=== PATIENT | female | born 1980 | race American Indian/Alaskan Native ===

== ENCOUNTER 2018-08-25 17:24 | Emergency (ER) | payer OTHER ==
--- NOTE | 2018-08-25 17:43 | Event Note ---
ED Screening Note Date of service: 08/25/18 Time: 17:39 ED Screening Note: 38 y/o female that is 7 weeks preg comes in for vag spotting and abd cramping today. This initial assessment/diagnostic orders/clinical plan/treatment(s) is/are subject to change based on patients health status, clinical progression and re- assessment by fellow clinical providers in the ED. Further treatment and workup at subsequent clinical providers discretion. Patient/guardian urged not to elope from the ED as their condition may be serious if not clinically assessed and managed. Initial orders include:
[2018-08-25 18:06] LABS: Basophils % (Auto) 0.4 % (0.0-1.8); Eosinophils # (Auto) 0.2 K/mm3 (0.0-0.4); Hemoglobin 11.7 gm/dl (10.1-14.3); Lymphocytes % (Auto) 38.7 % (13.4-35.0); Mean Corpuscular HGB Conc 34 % (30-34); Mean Corpuscular Volume 90 fl (79-97); Monocytes # (Auto) 0.6 K/mm3 (0.0-0.8); Monocytes % (Auto) 7.7 % (0.0-7.3); Platelet Count 371 K/mm3 (140-440); Red Blood Count 3.76 M/mm3 (3.65-5.03); Red Cell Distribution Width 13.3 % (13.2-15.2)
[2018-08-25 18:18] LABS: BUN/Creatinine Ratio 19; Blood Urea Nitrogen 17 mg/dL (7-17); Calcium 9.2 mg/dL (8.4-10.2); Hemolysis Index 8
[2018-08-25 18:27] LABS: Bilirubin,Urine NEG (Negative); Blood,Urine LG (Negative); Color,Urine Yellow (Yellow); Mucus,Urine FEW /HPF; Protein,Urine <15 mg/dL mg/dL (Negative); Urobilinogen,Urine < 2.0 mg/dL (<2.0)
--- NOTE | 2018-08-25 21:49 | Emergency Department Report ---
ED HPI - General Chief complaint: Abdominal Pain Stated complaint: VAG BLEED 7WKS PREG Time Seen by Provider: 08/25/18 19:09 Source: patient Mode of arrival: Ambulatory Limitations: No Limitations - History of Present Illness Initial comments: Patient is a 38-year-old female who presents with complaints of vaginal spotting that began today. She states she notices blood when she wipes. She is currently 7 weeks . Her [employer]IATION SURVIVAL TECHNICIAN is [facility]. She has not had her first ultrasound. She has associated lower abdominal cramping. She denies any urinary symptoms, vaginal discharge, fever or vomiting/diarrhea. She is taking a daily vitamin. Past medical history of asthma. /P:3/A:2 - Related Data Previous Rx's Medication Instructions Recorded Last Taken Type cephALEXin [Keflex] 500 mg PO BID 7 Days #14 cap 08/25/18 Unknown Rx Allergies Allergy/AdvReac Type Severity Reaction Status Date / Time No Known Allergies Allergy Verified 08/25/18 17:38 ED Review of Systems ROS: Stated complaint: VAG BLEED 7WKS PREG Other details as noted in HPI Comment: All other systems reviewed and negative ED Past Medical Hx - Past Medical History Previous Medical History?: No - Surgical History Past Surgical History?: No - Social History Smoking Status: Current Every Day Smoker Substance Use Type: None - Medications Home Medications: Home Medications Medication Instructions Recorded Confirmed Last Taken Type cephALEXin [Keflex] 500 mg PO BID 7 Days #14 cap 08/25/18 Unknown Rx ED Physical Exam - General Limitations: No Limitations General appearance: alert, in no apparent distress - Head Head exam: Present: atraumatic, normocephalic - Eye Eye exam: Present: normal appearance, PERRL - ENT ENT exam: Present: mucous membranes moist - Respiratory Respiratory exam: Present: normal lung sounds bilaterally. Absent: respiratory distress, wheezes, rales, rhonchi, stridor, chest wall tenderness, accessory muscle use, decreased breath sounds, prolonged expiratory - Cardiovascular Cardiovascular Exam: Present: regular rate, normal rhythm, normal heart sounds. Absent: systolic murmur, diastolic murmur, rubs, gallop - GI/Abdominal GI/Abdominal exam: Present: soft, normal bowel sounds. Absent: distended, tenderness, guarding, rebound, rigid - Back Exam Back exam: Absent: CVA tenderness (R), CVA tenderness (L) - Neurological Exam Neurological exam: Present: alert, oriented X3 - Psychiatric Psychiatric exam: Present: normal affect, normal mood - Skin Skin exam: Present: warm, dry, intact ED Course Vital Signs 08/25/18 08/25/18 17:29 22:39 Temperature 98.5 F Pulse Rate 97 H 92 H Respiratory 16 18 Rate Blood Pressure 120/76 Blood Pressure 103/78 [Right] O2 Sat by Pulse 99 100 Oximetry ED Medical Decision Making - Lab Data Result diagrams: 08/25/18 17:52 08/25/18 17:52 Lab Results 08/25/18 08/25/18 08/25/18 Range/Units 17:52 17:52 17:52 WBC 7.8 (4.5-11.0) K/mm3 RBC 3.76 (3.65-5.03) M/mm3 Hgb 11.7 (10.1-14.3) gm/dl Hct 34.0 (30.3-42.9) % MCV 90 (79-97) fl MCH 31 (28-32) pg MCHC 34 (30-34) % RDW 13.3 (13.2-15.2) % Plt Count 371 (140-440) K/mm3 Lymph % (Auto) 38.7 H (13.4-35.0) % [place] % (Auto) 7.7 H (0.0-7.3) % Eos % (Auto) 3.0 (0.0-4.3) % Baso % (Auto) 0.4 (0.0-1.8) % Lymph # 3.0 (1.2-5.4) K/mm3 [place] # 0.6 (0.0-0.8) K/mm3 Eos # 0.2 (0.0-0.4) K/mm3 Baso # 0.0 (0.0-0.1) K/mm3 Seg Neutrophils % 50.2 (40.0-70.0) % Seg Neutrophils # 3.9 (1.8-7.7) K/mm3 Sodium 135 L (137-145) mmol/L Potassium 4.1 (3.6-5.0) mmol/L Chloride 100.7 (98-107) mmol/L Carbon Dioxide 23 (22-30) mmol/L Anion Gap 15 mmol/L BUN 17 (7-17) mg/dL Creatinine 0.9 (0.7-1.2) mg/dL Estimated GFR > 60 ml/min BUN/Creatinine Ratio 19 % Glucose 99 (65-100) mg/dL Calcium 9.2 (8.4-10.2) mg/dL HCG, Quant (0-4) mIU/mL Urine Color Yellow (Yellow) Urine Turbidity Slightly-cloudy (Clear) Urine pH 5.0 (5.0-7.0) Ur Specific [place] 1.025 (1.003-1.030) Urine Protein <15 mg/dl (Negative) mg/dL Urine Glucose (UA) Neg (Negative) mg/dL Urine Ketones Neg (Negative) mg/dL Urine Blood Lg (Negative) Urine Nitrite Neg (Negative) Urine Bilirubin Neg (Negative) Urine Urobilinogen < 2.0 (<2.0) mg/dL Ur Leukocyte Esterase Tr (Negative) Urine WBC (Auto) 11.0 H (0.0-6.0) /HPF Urine RBC (Auto) 151.0 (0.0-6.0) /HPF U Epithel Cells (Auto) 5.0 (0-13.0) /HPF Urine Mucus Few /HPF Blood Type 08/25/18 08/25/18 Range/Units 17:52 17:52 WBC (4.5-11.0) K/mm3 RBC (3.65-5.03) M/mm3 Hgb (10.1-14.3) gm/dl Hct (30.3-42.9) % MCV (79-97) fl MCH (28-32) pg MCHC (30-34) % RDW (13.2-15.2) % Plt Count (140-440) K/mm3 Lymph % (Auto) (13.4-35.0) % [place] % (Auto) (0.0-7.3) % Eos % (Auto) (0.0-4.3) % Baso % (Auto) (0.0-1.8) % Lymph # (1.2-5.4) K/mm3 [place] # (0.0-0.8) K/mm3 Eos # (0.0-0.4) K/mm3 Baso # (0.0-0.1) K/mm3 Seg Neutrophils % (40.0-70.0) % Seg Neutrophils # (1.8-7.7) K/mm3 Sodium (137-145) mmol/L Potassium (3.6-5.0) mmol/L Chloride (98-107) mmol/L Carbon Dioxide (22-30) mmol/L Anion Gap mmol/L BUN (7-17) mg/dL Creatinine (0.7-1.2) mg/dL Estimated GFR ml/min BUN/Creatinine Ratio % Glucose (65-100) mg/dL Calcium (8.4-10.2) mg/dL HCG, Quant 65227 H (0-4) mIU/mL Urine Color (Yellow) Urine Turbidity (Clear) Urine pH (5.0-7.0) Ur Specific [place] (1.003-1.030) Urine Protein (Negative) mg/dL Urine Glucose (UA) (Negative) mg/dL Urine Ketones (Negative) mg/dL Urine Blood (Negative) Urine Nitrite (Negative) Urine Bilirubin (Negative) Urine Urobilinogen (<2.0) mg/dL Ur Leukocyte Esterase (Negative) Urine WBC (Auto) (0.0-6.0) /HPF Urine RBC (Auto) (0.0-6.0) /HPF U Epithel Cells (Auto) (0-13.0) /HPF Urine Mucus /HPF Blood Type O POSITIVE - Radiology Data Radiology results: report reviewed PROCEDURE: Transvaginal obstetrical ultrasound. TECHNIQUE: Real-time transvaginal sonography of the uterus, placenta, amniotic fluid, adnexa, and fetus was performed with image documentation. Measurements were obtained to determine age/size. M-mode Doppler was used to document heartbeat. HISTORY: Pelvic pain, vaginal bleeding, . COMPARISONS: None. FINDINGS: The uterus is retroflexed. The myometrium appears normal. There is a flattened gestational sac present. There is a yolk sac present and the appearance of a second smaller yolk sac. There may be a pole present that measures approximately 4.2 mm. This would indicate a menstrual age of 6 weeks 1 day. There is no detectable cardiac activity. There is echogenic debris within the gestational sac. The findings suggest intrauterine demise. Correlation with a quantitative beta hCG value and possible follow-up imaging is suggested. Both ovaries appear normal in size. There are small bilateral complex cysts within the ovaries. There is no free fluid in the cul-de-sac. IMPRESSION: Early intrauterine with probable demise. This document is electronically signed by Lena Bowman MD., August 25 2018 10:33:38 PM ET Transcribed By: SCOTTY Dictated By: LENA BOWMAN MD Electronically Authenticated By: LENA BOWMAN MD Signed Date/Time: 08/25/18 1112 - Medical Decision Making Patient is a 38-year-old female who presents with complaints of vaginal spotting that began today. She states she notices blood when she wipes. She is currently 7 weeks . Her [employer] SUR[employer] TECHNICIAN is [facility]. She has not had her first ultrasound. She has associated lower abdominal cramping. She denies any urinary symptoms, vaginal discharge, fever or vomiting/diarrhea. She is taking a daily vitamin. Past medical history of asthma. /P:3/A:2. VSS. no abd tenderness on exam. labs WNL. [place] [address]. pt is Rh (+). US shows Early intrauterine with probable demise. discussed US results with pt. advised to please follow up with her [employer] SURVIVAL TECHNICIAN in the next 24 hours. advised she would need a repeat hcg quant. pt given keflex for UTI. advised to take medication as prescribed. discussed to return to the emergency room for any new or worsening symptoms. - Differential Diagnosis early IUP, spontenous , threatened miscarriage Critical care attestation.: If time is entered above; I have spent that time in minutes in the direct care of this critically ill patient, excluding procedure time. ED Disposition Clinical Impression: Threatened miscarriage UTI (urinary tract infection) Qualifiers: Urinary tract infection type: acute cystitis Hematuria presence: with hematuria Qualified Code(s): N30.01 - Acute cystitis with hematuria Disposition: - TO HOME OR SELFCARE Is pt being admited?: No Does the pt Need Aspirin: No Condition: Stable Instructions: Threatened Miscarriage (ED), Urinary Tract Infection in Women (ED) Additional Instructions: Please call your AVIATION SURVIVAL TECHNICIAN tomorrow (08/26/18). you will need to have a repeat hCG Quant. Return to the emergency room for any new or worsening symptoms. please take medication as prescribed. drink plenty of water. Prescriptions: cephALEXin [Keflex] 500 mg PO BID 7 Days #14 cap Referrals: RUTHIE IBRAHIM MD [Primary Care Provider] - 2-3 Days [facility] [Provider Group] - 24 Hours Forms: Work/School Release Form(ED) Time of Disposition: 22:44 Print Language: MONTSERRATIAN
--- NOTE | 2018-08-25 22:30 | Ultrasound Report ---
PROCEDURE: Limited transabdominal obstetrical ultrasound. TECHNIQUE: Real-time transabdominal sonography of the uterus, placenta, amniotic fluid, adnexa, and fetus was performed with image documentation. Measurements were obtained to determine age/size. M-mode Doppler was used to document heartbeat. ADDITIONAL GESTATION: None. HISTORY: Pelvic pain, vaginal bleeding, . COMPARISONS: None. FINDINGS: Image quality is quite limited because the patient's bladder was not distended. The uterus measures a pproximately 10.3 cm x 6.7 cm x 7.2 cm. There may be a gestational sac present, but this is not optim ally demonstrated. Neither ovary is identified. There is no fluid in the cul-de-sac. A transvaginal s tudy should be more useful. IMPRESSION: Very limited transabdominal study. Possible intrauterine gestational sac. This document is electronically signed by Joon Ferguson MD., August 25 2018 10:27:54 PM ET
--- NOTE | 2018-08-25 22:35 | Ultrasound Report ---
PROCEDURE: Transvaginal obstetrical ultrasound. TECHNIQUE: Real-time transvaginal sonography of the uterus, placenta, amniotic fluid, adnexa, and fe tus was performed with image documentation. Measurements were obtained to determine age/size. M -mode Doppler was used to document heartbeat. HISTORY: Pelvic pain, vaginal bleeding, . COMPARISONS: None. FINDINGS: The uterus is retroflexed. The myometrium appears normal. There is a flattened gestational sac presen t. There is a yolk sac present and the appearance of a second smaller yolk sac. There may be a pole present that measures approximately 4.2 mm. This would indicate a menstrual age of 6 weeks 1 day . There is no detectable cardiac activity. There is echogenic debris within the gestational sac. The findings suggest intrauterine demise. Correlation with a quantitative beta hCG value and possib le follow-up imaging is suggested. Both ovaries appear normal in size. There are small bilateral comp melly cysts within the ovaries. There is no free fluid in the cul-de-sac. IMPRESSION: Early intrauterine with probable demise. This document is electronically signed by Joon Ferguson MD., August 25 2018 10:33:38 PM ET
[2018-08-25 22:40] VITALS: BP 103/78
== END 2018-08-25 22:57 | disposition home or self-care (01) ==
LOC: ED 17:24
DX: O20.0 Threatened abortion (principal); O23.41 Unspecified infection of urinary tract in pregnancy, first trimester; O99.331 Smoking (tobacco) complicating pregnancy, first trimester; F17.200 Nicotine dependence, unspecified, uncomplicated; Z3A.01 Less than 8 weeks gestation of pregnancy
CPT/HCPCS: 36415; 76801; 76817; 80048; 81001; 84702; 85025; 86900; 86901; 87086

== ENCOUNTER 2018-11-06 10:11 | Day surgery (SDC) | payer OTHER ==
[2018-11-06] MEDS ORDERED: LACTATED RINGERS 1,000 ML IV SCH (10:33)
[2018-11-06] MEDS ORDERED: DILAUDID IV PRN (11:11)
--- NOTE | 2018-11-06 11:12 | Anesthesia Consultation ---
Anesthesia Consult and Med Hx Date of service: 11/06/18 - Airway Anesthetic Teeth Evaluation: Good ROM Head & Neck: Adequate Mental/Hyoid Distance: Adequate Mallampati Class: Class I Intubation Access Assessment: Good - Pulmonary Exam CTA: Yes - Cardiac Exam Cardiac Exam: RRR - Pre-Operative Health Status ASA Pre-Surgery Classification: ASA2 Proposed Anesthetic Plan: General - Pulmonary Hx Smoking: Yes (03/01 PPD) Hx Asthma: Yes (Last albuterol 2 years ago) Hx Respiratory Symptoms: No - Cardiovascular System Hx Hypertension: No Hx Heart Attack/AMI: No - Central Nervous System CVA: No - Gastrointestinal Hx Gastroesophageal Reflux Disease: No - Endocrine Hx Renal Disease: No Hx Liver Disease: No Hx Insulin Dependent Diabetes: No Hx Non-Insulin Dependent Diabetes: No Hx Thyroid Disease: No - Other Systems Hx Alcohol Use: Yes (Occas) Hx Substance Use: Yes (THC) Hx Obesity: No
--- NOTE | 2018-11-06 11:12 | Anesthesia Day of Surgery ---
Anesthesia Day of Surgery - Day of Surgery Patient Examined: Yes Patient H&P Reviewed: Yes Patient is NPO: Yes
[2018-11-06] MEDS ORDERED: DIPRIVAN 10 MG/ML IV ONE (11:53)
[2018-11-06] MEDS ORDERED: SUBLIMAZE ONE (11:53)
[2018-11-06] MEDS ORDERED: XYLOCAINE MPF 2% ONE (11:57)
[2018-11-06] MEDS ORDERED: TRANSDERM-SCOP TD NR (12:00)
[2018-11-06] MEDS ORDERED: VERSED IV NR (12:00)
[2018-11-06] MEDS ORDERED: METHERGINE IM ONE ×2 (12:24→12:25)
[2018-11-06] MEDS ORDERED: SILVER NITRATE TP ONE (12:36)
[2018-11-06] MEDS ORDERED: NACL 0.9% IR ONE (12:38)
[2018-11-06] MEDS ORDERED: ZOFRAN ONE (12:41)
[2018-11-06 13:22] VITALS: BP 133/90
--- NOTE | 2018-11-06 14:09 | Post Anesthesia Evaluation ---
- Post Anesthesia Evaluation Patient Participated: Yes Airway Patent: Yes Stable Respiratory Function: Yes Nausea/Vomiting: No Temp > 96.8F: Yes Pain Manageable: Yes Adequeate Hydration: Yes Anesthesia Complications: No
--- NOTE | 2018-11-06 14:16 | Operative Report ---
Operative Report Operative Report: Preoperative diagnosis: 13 weeks gestation, missed . Postoperative diagnosis: same as preoperative diagnosis. Procedure: Suction D&C Surgeon: Dr. Tello Quality Control Inspector: none Anesthesia: General. EBL: 100 cc IVF: RL 1 liter Complications: none Procedure details: The risks, benefits, and alternatives of the procedure were discussed in detail with the patient which included but not limited to infection, hemorrhage requiring a, and uterine perforation. The patient expressed understanding, her questions answered, and she gave informed consent. The patient was taken to the operating room with an IVF infusing Ringer's lactate. In the operating room, she was placed in the dorsal supine position and given general anesthesia. Then, she was placed on the stirrups in a dorsal lithotomy position. The perineum vagina and cervix were washed and she was prepared and draped in the usual sterile fashion. Examination under anesthesia revealed normal external genitalia and vagina. The cervix was closed, long, posterior, no bleeding. The uterus was enlarged to 9-wk size, retroverted, mobile. The adnexae were nonpalpable. A weighted speculum was placed on the posterior vaginal wall. The anterior lip of the cervix was grasped with a single-tooth tenaculum. The cervical os was dilated, an 8-mm suction curette was connected to the suction device and introduced into the uterine cavity. It was rotated and moderate amount of tissues was suctioned. A gentle curettage was performed until a gritty texture was noticed. The suction device was re- introduced into the uterine cavity and was rotated to remove the remaining products of conception. The instruments were then removed from the uterine cavity. The count of laps, needles, sponges, and instrument were correct 2. The patient tolerated the procedure well. She was awakened from the anesthesia and taken to the recovery room in a stable condition.
== END 2018-11-06 10:12 | disposition home or self-care (01) ==
LOC: OR 10:11
PROVIDERS: ATTEND Obstetrics & Gynecology
DX: O02.1 Missed abortion (principal); G43.909 Migraine, unspecified, not intractable, without status migrainosus; J45.909 Unspecified asthma, uncomplicated; F17.210 Nicotine dependence, cigarettes, uncomplicated; Z79.899 Other long term (current) drug therapy; Z3A.13 13 weeks gestation of pregnancy; Z98.891 History of uterine scar from previous surgery; Z72.89 Other problems related to lifestyle; Z98.890 Other specified postprocedural states; Z86.2 Personal history of diseases of the blood and blood-forming organs and certain disorders involving the immune mechanism
CPT/HCPCS: 59820; 88305; J1170; J2210; J2250; J2405; J2704; J3010; J7120